=== PATIENT | male | born 1955 | race Caucasian/White ===

== ENCOUNTER 2021-04-16 08:37 | Inpatient (IN) | payer BC ==
[~2021-04-16] VITALS: Ht 180.3 cm; Wt 75.4 kg
[2021-04-16 10:49] LABS: BASOPHILS # (AUTO) 0.1 X10'3 (0-0.2); BASOPHILS % (AUTO) 0.6 % (0-1); EOSINOPHILS % (AUTO) 0.3 % (0-6); HEMATOCRIT 34.5 % (42.0-52.0); HEMOGLOBIN 12.1 g/dl (14.0-17.9); LYMPHOCYTES # (AUTO) 0.9 X10'3 (1.1-4.8); LYMPHOCYTES % (AUTO) 8.6 % (21-51); MEAN CORPUSCULAR HEMOGLOBIN 36.7 PG (27.0-31.0); MEAN CORPUSCULAR HGB CONC 35.1 g/dL (33.0-36.5); MEAN CORPUSCULAR VOLUME 104.5 FL (78-98); MEAN PLATELET VOLUME 6.4 FL (7.4-10.4); MONOCYTES # (AUTO) 1.1 X10'3 (0-0.9); MONOCYTES % (AUTO) 10.4 % (2-12); NEUTROPHILS # (AUTO) 8.3 X10'3 (1.8-7.7); NEUTROPHILS % (AUTO) 80.1 % (42-75); PLATELET COUNT 402 X10'3 (140-440); RED CELL DISTRIBUTION WIDTH 14.5 % (11.5-14.5); WHITE BLOOD COUNT 10.3 X10'3 (4.5-11.0)
[2021-04-16 11:01] LABS: PARTIAL THROMBOPLASTIN TIME 39 SECONDS (22-32)
[2021-04-16 11:02] LABS: ALANINE AMINOTRANSFERASE 13 U/L (12-78); ALKALINE PHOSPHATASE 146 IU/L (46-116); ANION GAP 9 (8-16); ASPARTATE AMINO TRANSFERASE 11 U/L (10-37); BILIRUBIN,TOTAL 0.6 MG/DL (0.1-1.0); BLOOD UREA NITROGEN 31 MG/DL (7-18); BUN/CREATININE RATIO 7.2 (5.4-32.0); CALCIUM 8.7 MG/DL (8.5-10.1); CHLORIDE 91 MMOL/L (99-107); CREATININE 4.31 MG/DL (0.60-1.10); GLUCOSE 105 MG/DL (70-104); POTASSIUM 4.1 MMOL/L (3.5-5.1); SODIUM 124 MMOL/L (135-145); TOTAL CARBON DIOXIDE 24.5 MMOL/L (24-32); TOTAL PROTEIN 7.3 G/DL (6.4-8.2); eGFR 14 ML/MIN
[2021-04-16 11:07] LABS: ETHANOL < 0.010 GM/DL (0.0-0.010); LIPASE < 50 U/L (73-393); MAGNESIUM 2.5 MG/DL (1.5-2.4)
[2021-04-16 11:09] LABS: ALBUMIN/GLOBULIN RATIO 0.4 (1.1-1.5)
[2021-04-16] MEDS ORDERED: morphine 2 MG/ML inj. syringe IM ONE (12:00)
[2021-04-16] MEDS ORDERED: ondansetron 4mg rapidly disintigrating tab PO ONE (12:00)
[2021-04-16 12:40] LABS: OCCULT BLOOD STOOL POSITIVE (Neg)
[2021-04-16 12:50] LABS: CLARITY,URINE CLEAR (Clear); COLOR,URINE YELLOW (Yellow); GLUCOSE, URINE NEGATIVE (Neg); KETONES,URINE NEGATIVE (Neg); LEUKOCYTE ESTERASE ,URINE NEGATIVE (Neg); NITRITES, URINE NEGATIVE (Neg); OCCULT BLOOD,URINE SMALL (Neg); PROTEIN,URINE NEGATIVE (Neg); UROBILINOGEN,URINE 0.2 E.U/dL (0.2-1.0)
[2021-04-16 12:54] LABS: UA COLLECTION TYPE FOLEY CATH
[2021-04-16 12:56] LABS: BACTERIA,URINE NONE SEEN /HPF (Neg); MUCUS STRANDS NONE SEEN /LPF (Neg); SQUAMOUS EPITHELIAL CELL,UR FEW /LPF (FEW); WBC,URINE 0-4 /HPF (0-4)
[2021-04-16] MEDS ORDERED: HYDR-3972 PO (12:56)
[2021-04-16] MEDS ORDERED: LISI30TA4 PO (12:56)
[2021-04-16] MEDS ORDERED: potassium Cl 40MEQ/1/2NS 520ml 520 ML IV PRN ×2 (13:00)
[2021-04-16] MEDS ORDERED: acetaminophen 325mg tablet PO PRN ×2 (13:00)
[2021-04-16] MEDS ORDERED: morphine 2 MG/ML inj. syringe IV PRN ×2 (13:00)
[2021-04-16] MEDS ORDERED: CefTRIAXone 2gm/D5W 50ml BAG 50 ML IV ONE (13:00)
[2021-04-16] MEDS ORDERED: ondansetron/PF 4mg/2ml inj IV PRN (13:00)
[2021-04-16] MEDS ORDERED: potassium Cl 20 mEq SR tablet PO PRN ×2 (13:00)
[2021-04-16] MEDS ORDERED: HYDROcodone/acetaminophen 10/325mg tab PO PRN (13:00)
[2021-04-16] MEDS ORDERED: magnesium Cl slow-release 64mg tablet PO PRN (13:00)
[2021-04-16] MEDS ORDERED: magnesium 4gm in 100ml NS 100 ML IV PRN (13:00)
[2021-04-16] MEDS ORDERED: HYDROcodone/acetaminophen 5mg/325mg tablet PO PRN (13:00)
[2021-04-16] MEDS ORDERED: magnesium 2GM in 50ml NS 50 ML IV PRN (13:00)
[2021-04-16] MEDS ORDERED: HYDROmorphone inj. 0.5 MG/0.5 ML DISP.SYRIN IV PRN (13:00)
[2021-04-16 13:25] LABS: % IRON SATURATION 20 % (11-46); IRON 23 UG/DL (53-167); TOTAL IRON BINDING CAPACITY 114 UG/DL (259-388)
--- NOTE | 2021-04-16 13:26 | NUR ---
ULTRASOUND AT BEDSIDE
[2021-04-16 13:27] LABS: HEMOGLOBIN A1C 5.3 % (4.5-6.2)
[2021-04-16] MEDS: normal saline 1000ml 1,000 ML IV SCH ×2 (13:32→20:33)
--- NOTE | 2021-04-16 14:08 | NUR ---
Patient in room ED 3. I have received report from WIL Singh and had the opportunity to ask questions and assume patient care.
--- NOTE | 2021-04-16 14:20 | NUR ---
Pt arrive to unit stable via wheelchair. Oriented pt to room, provided call light. Completed physical assessment and collected vital signs.
[2021-04-16 15:15] VITALS: BP 147/94
--- NOTE | 2021-04-16 17:03 | NUR ---
Spoke to Aneta regarding diet orders. She spoke to Khadar and placed pt on Renal Diet
--- NOTE | 2021-04-16 18:18 | NUR ---
Patient in room [facility] 349. I have received report from WIL Monreal and had the opportunity to ask questions and assume patient care.
--- NOTE | 2021-04-16 18:38 | NUR ---
Patient in room [facility] 349. I have received report from Amparo DE LA TORRE and had the opportunity to ask questions and assume patient care.
[2021-04-16 18:46] VITALS: BP 114/73
[2021-04-16] MEDS: K and/or MAG REPLACEMENT MC SCH (20:00)
[2021-04-16] MEDS: heparin, porcine 5000 units/ml vial SQ SCH (20:33)
[2021-04-16] MEDS: pantoprazole 40 MG vial IV SCH (20:34)
[2021-04-16] MEDS ORDERED: temazepam 15mg capsule PO PRN (21:00)
[2021-04-17] VITALS: BP 111/80
[2021-04-17] MEDS: normal saline 1000ml 1,000 ML IV SCH ×3 (03:32→15:40)
--- NOTE | 2021-04-17 06:16 | NUR ---
Patient in room [facility] 349. I have received report from Dioni Monreal and had the opportunity to ask questions and assume patient care.
--- NOTE | 2021-04-17 06:24 | NUR ---
Problems reprioritized. Patient report given, questions answered & plan of care reviewed with Amparo DE LA TORRE.
[2021-04-17 06:49] VITALS: BP 115/70
[2021-04-17 06:54] LABS: BASOPHILS % (AUTO) 1.2 % (0-1); EOSINOPHILS # (AUTO) 0.1 X10'3 (0-0.9); EOSINOPHILS % (AUTO) 1.5 % (0-6); HEMATOCRIT 26.9 % (42.0-52.0); HEMOGLOBIN 9.4 g/dl (14.0-17.9); LYMPHOCYTES # (AUTO) 0.8 X10'3 (1.1-4.8); LYMPHOCYTES % (AUTO) 19.2 % (21-51); MEAN CORPUSCULAR HEMOGLOBIN 36.4 PG (27.0-31.0); MEAN CORPUSCULAR VOLUME 103.8 FL (78-98); MEAN PLATELET VOLUME 6.5 FL (7.4-10.4); MONOCYTES # (AUTO) 0.5 X10'3 (0-0.9); MONOCYTES % (AUTO) 12.5 % (2-12); NEUTROPHILS # (AUTO) 2.8 X10'3 (1.8-7.7); NEUTROPHILS % (AUTO) 65.6 % (42-75); PLATELET COUNT 356 X10'3 (140-440); RED BLOOD COUNT 2.59 X10'6 (4.70-6.10); RED CELL DISTRIBUTION WIDTH 14.6 % (11.5-14.5); WHITE BLOOD COUNT 4.3 X10'3 (4.5-11.0)
[2021-04-17 07:12] LABS: ALANINE AMINOTRANSFERASE 10 U/L (12-78); ALBUMIN 1.3 G/DL (3.4-5.0); ALBUMIN/GLOBULIN RATIO 0.3 (1.1-1.5); ALKALINE PHOSPHATASE 108 IU/L (46-116); ANION GAP 8 (8-16); ASPARTATE AMINO TRANSFERASE 16 U/L (10-37); BILIRUBIN,TOTAL 0.3 MG/DL (0.1-1.0); BLOOD UREA NITROGEN 12 MG/DL (7-18); BUN/CREATININE RATIO 10.9 (5.4-32.0); CALCIUM 7.5 MG/DL (8.5-10.1); CHLORIDE 106 MMOL/L (99-107); GLUCOSE 104 MG/DL (70-104); MAGNESIUM 1.9 MG/DL (1.5-2.4); POTASSIUM 3.1 MMOL/L (3.5-5.1); SODIUM 139 MMOL/L (135-145); TOTAL CARBON DIOXIDE 25.4 MMOL/L (24-32); TOTAL PROTEIN 5.2 G/DL (6.4-8.2); eGFR 68 ML/MIN
[2021-04-17] MEDS: pantoprazole 40 MG vial IV SCH (07:59)
[2021-04-17] MEDS: heparin, porcine 5000 units/ml vial SQ SCH (08:00)
[2021-04-17] MEDS: K and/or MAG REPLACEMENT MC SCH (08:00)
[2021-04-17 11:00] VITALS: BP 119/70
[2021-04-17] MEDS ORDERED: potassium Cl 20 mEq SR tablet PO STA (11:41)
--- NOTE | 2021-04-17 11:45 | NUR ---
PAGER ID: [phone] MESSAGE: [id number]: Percy Alvarengay - Currently replacing K+ with 20meq of K. Would you still like to give pt the 40meq STAT dose in addition to the other doses needed to be given? -juliana [phone] Addendum: 04/17/21 at 1146 by Juliana Barton RN niraj Cornell give stat dose
--- NOTE | 2021-04-17 17:29 | NUR ---
PAGER ID: [phone] MESSAGE: 349B: K+ is 3.6. -Amparo [phone]
--- NOTE | 2021-04-17 18:28 | NUR ---
Patient in room [facility] 349B. I have received report from WIL Christensen and had the opportunity to ask questions and assume patient care.
--- NOTE | 2021-04-17 18:29 | NUR ---
Problems reprioritized. Patient report given, questions answered & plan of care reviewed with WLI Curry.
[2021-04-17 18:55] VITALS: BP 143/86
[2021-04-17] MEDS ORDERED: LISI20TA28 PO (18:59)
--- NOTE | 2021-04-17 19:44 | NUR ---
Patient discharged. multimedia services manager wheeled patient out of unit with all belongings. Patient verbalized understanding to all discharge instructions including medications, Rocha catheter care, and follow up with Dr. Rubalcava. IV discontinued. Patient knows to call back or come back to ER if any symptoms worsen.
[2021-04-17] MEDS ORDERED: pantoprazole 40mg Tablet.DR PO SCH (20:00)
== END 2021-04-17 19:50 | disposition home or self-care (01) | DRG 699 ==
LOC: ER 08:39 → ED HOLD 12:56 → EDBEDREQ 13:47 → SUR 3N 14:30
PROVIDERS: ADMIT Internal Medicine; ATTEND Internal Medicine
PROC: 0T9B70Z Drainage of Bladder with Drainage Device, Via Natural or Artificial Opening (ICD-10-PCS; principal; 2021-04-16)
DX: N32.0 Bladder-neck obstruction (principal); N17.9 Acute kidney failure, unspecified; E87.1 Hypo-osmolality and hyponatremia; M48.54XA Collapsed vertebra, not elsewhere classified, thoracic region, initial encounter for fracture; N13.2 Hydronephrosis with renal and ureteral calculous obstruction; F17.210 Nicotine dependence, cigarettes, uncomplicated; R19.5 Other fecal abnormalities; G89.29 Other chronic pain; E87.6 Hypokalemia; I10 Essential (primary) hypertension; K59.00 Constipation, unspecified; N39.44 Nocturnal enuresis; R73.03 Prediabetes; Z71.6 Tobacco abuse counseling
CPT/HCPCS: 36415; 74176; 76770; 80053; 80320; 81001; 82272; 83036; 83540; 83550; 83605; 83690; 83735; 83930; 84132; 84145; 84153; 84484; 85025; 85610; 85730; 87040; 87081; 93005; 96372; 97116; 97161; 97530; 99285; C9113; G0378; J0696; J1644; J2270; J7030

== ENCOUNTER 2023-01-22 14:42 | Emergency (ER) | payer MEDICARE ==
[~2023-01-22] VITALS: Ht 177.8 cm; Wt 72.7 kg
[~2023-01-22 14:42] MED LIST: CYAN-51 PO; ESCI-8 PO; FOLI1TAB27 PO; HYDR50TA65 PO; LISI5TAB22 PO; NALT50TA PO; NICO-687 TD; NO HOME MEDS; TRAZ-251 PO; thiamine tablet PO
[2023-01-22 15:13] VITALS: BP 135/93
[2023-01-22] MEDS ORDERED: HYDROcodone/acetaminophen 10/325mg tab PO ONE (18:30)
[2023-01-22] MEDS ORDERED: HYDR-3972 PO (19:01)
== END 2023-01-22 20:15 | disposition home or self-care (01) ==
LOC: ER 14:43
DX: S82.491A Other fracture of shaft of right fibula, initial encounter for closed fracture (principal); F17.200 Nicotine dependence, unspecified, uncomplicated; Z79.899 Other long term (current) drug therapy; W18.39XA Other fall on same level, initial encounter; Y93.89 Activity, other specified; Y92.89 Other specified places as the place of occurrence of the external cause; Y99.8 Other external cause status
CPT/HCPCS: 29515; 73610; 73630; 99284; A6446; A6449

== ENCOUNTER 2023-01-24 11:37 | Emergency (ER) | payer MEDICARE ==
[~2023-01-24] VITALS: Ht 172.7 cm; Wt 90.0 kg
[~2023-01-24 11:37] MED LIST changes: +HYDR-3972 PO
[2023-01-24 11:48] VITALS: BP 101/59
== END 2023-01-24 17:01 | disposition home or self-care (01) ==
LOC: ER 11:38
DX: S82.831A Other fracture of upper and lower end of right fibula, initial encounter for closed fracture (principal); Z79.899 Other long term (current) drug therapy; X58.XXXA Exposure to other specified factors, initial encounter; Y93.9 Activity, unspecified; Y92.89 Other specified places as the place of occurrence of the external cause; Y99.8 Other external cause status
CPT/HCPCS: 73610; 99283; A6449

== ENCOUNTER → 2023-02-16 | Day surgery (SDC) | payer MEDICARE ==
[2023-02-14 11:35] LABS: EOSINOPHILS # (AUTO) 0.2 X10'3 (0-0.9); PRE OP HEMATOCRIT 37.7 % (42.0-52.0)
[2023-02-14 11:37] LABS: CLARITY,URINE CLEAR (Clear); COLOR,URINE YELLOW (Yellow); GLUCOSE, URINE NEGATIVE (Neg); KETONES,URINE NEGATIVE (Neg); LEUKOCYTE ESTERASE ,URINE NEGATIVE (Neg); NITRITES, URINE NEGATIVE (Neg); OCCULT BLOOD,URINE NEGATIVE (Neg); PROTEIN,URINE NEGATIVE (Neg); UROBILINOGEN,URINE 0.2 E.U/dL (0.2-1.0)
[2023-02-14 11:37] LABS: BASOPHILS # (AUTO) 0.1 X10'3 (0-0.2); EOSINOPHILS % (AUTO) 3.6 % (0-6); LYMPHOCYTES % (AUTO) 33.2 % (21-51); MEAN CORPUSCULAR HGB CONC 34.4 g/dL (33.0-36.5); MEAN CORPUSCULAR VOLUME 104.8 FL (78-98); MEAN PLATELET VOLUME 6.8 FL (7.4-10.4); MONOCYTES # (AUTO) 0.6 X10'3 (0-0.9); MONOCYTES % (AUTO) 9.7 % (2-12); NEUTROPHILS # (AUTO) 3.2 X10'3 (1.8-7.7); NEUTROPHILS % (AUTO) 52.5 % (42-75); PRE OP PLATELET COUNT 285 X10'3 (140-440); RED CELL DISTRIBUTION WIDTH 15.4 % (11.5-14.5)
[2023-02-14 11:45] LABS: UA COLLECTION TYPE CLN CATCH MIDSTREAM
[2023-02-14 12:15] LABS: ALBUMIN 3.6 G/DL (3.4-5.0); ALBUMIN/GLOBULIN RATIO 1.1 (1.1-1.5); ALKALINE PHOSPHATASE 65 IU/L (46-116); BLOOD UREA NITROGEN 11 MG/DL (7-18); BUN/CREATININE RATIO 11.6 (10.0-20.0); CALCIUM 8.9 MG/DL (8.5-10.1); CHLORIDE 103 MMOL/L (99-107); CREATININE 0.95 MG/DL (0.60-1.10); PRE OP ALT 16 U/L (30-65); PRE OP ANION GAP 7 (8-16); PRE OP AST 15 U/L (10-37); PRE OP BILIRUB, TOTAL 0.5 MG/DL (0.0-1.0); PRE OP GLUCOSE 91 MG/DL (70-104); PRE OP SODIUM 136 MMOL/L (135-145); TOTAL CARBON DIOXIDE 26.1 MMOL/L (24-32); TOTAL PROTEIN 6.9 G/DL (6.4-8.2); eGFR 80 ML/MIN
[~2023-02-16] VITALS: Ht 180.3 cm; Wt 76.3 kg
[~2023-02-16] MED LIST changes: +CEPH-585 PO; -CYAN-51 PO; -ESCI-8 PO; -FOLI1TAB27 PO; -HYDR50TA65 PO; +HYDROcodone/acetaminophen 10/325mg tab PO ONE; -LISI5TAB22 PO; -NALT50TA PO; -NICO-687 TD; -NO HOME MEDS; +ROPIVAcaine 0.5% (5mg/ml) 30ml vial ONE; -TRAZ-251 PO; +albuterol 2.5 MG/3 ML nebule NEB ONE; +bacitracin 15gm ointment TP ONE; +cefazolin 2gm/D5W 100mL 100 ML IV ONE; +dexamethasone sod phosphate 4mg/ml inj. ONE; +famotidine 20mg tablet PO ONE; +fentaNYL/PF 50MCG/1 ML 2ML syringe ONE; +meperidine/PF 25mg/ml syringe IV PRN; +midazolam 1 mg/ML 2ml injection ONE; +morphine 2 MG/ML inj. syringe IV PRN; +morphine 4 MG/ML inj SYRINge IV PRN; +ondansetron/PF 4mg/2ml inj IV PRN; +ondansetron/PF 4mg/2ml inj ONE; +proCHLORperazine 10 MG/2 ml inj IV PRN; +propofol inj 20 ML IV ONE; +ringers solution, lacted 1,000 ML IV SCH; -thiamine tablet PO
[2023-02-16 11:45] VITALS: BP 130/84
[2023-02-16 22:13] VITALS: BP 136/85
--- NOTE | 2023-02-16 22:13 | NUR ---
Received from OR via , accompanied by Anesthesiologist ANGELIA AND OR NURSE and report given by Anesthesiolgist. PT IS DROWSY YET ABLE TO FOLLOW COMMANDS. DENIES PAIN OR DISCOMFORT. RT LOWER LEG IS IN CAST/SPLINT WITH GAUZE AND RUSS WRAP; CDI. VSS Addendum: 02/16/23 at 2224 by Melissa De La Torre RN Amended: Links added.
[2023-02-16 22:20] VITALS: BP 127/74
[2023-02-16 22:30] VITALS: BP 123/78
[2023-02-16 22:40] VITALS: BP 121/85
[2023-02-16 22:50] VITALS: BP 146/88
--- NOTE | 2023-02-16 23:03 | NUR ---
I HAVE REVIEWED D/C INSTRUCTIONS WITH PATIENT AND THEY HAVE VERBALIZED UNDERSTANDING OF INSTRUCTIONS. PATIENT D/C HOME WITH ALL BELONGINGS AND FAMILY GAVE TRANSPORT Addendum: 02/16/23 at [id number] by Melissa De La Torre RN Amended: Links added.
== END | disposition home or self-care (01) ==
LOC: PAS 11:24
PROVIDERS: ATTEND Podiatrist Foot & Ankle Surgery
DX: S82.61XA Displaced fracture of lateral malleolus of right fibula, initial encounter for closed fracture (principal); G89.18 Other acute postprocedural pain; F17.210 Nicotine dependence, cigarettes, uncomplicated; F10.91 Alcohol use, unspecified, in remission; Z98.890 Other specified postprocedural states; Z79.899 Other long term (current) drug therapy; Z79.82 Long term (current) use of aspirin; Z88.8 Allergy status to other drugs, medicaments and biological substances; X50.1XXA Overexertion from prolonged static or awkward postures, initial encounter; Y93.89 Activity, other specified; Y92.89 Other specified places as the place of occurrence of the external cause; Y99.8 Other external cause status
CPT/HCPCS: 27792; 36415; 64445; 71046; 73600; 80053; 81003; 82948; 85025; 93005; A6223; C1713; J0690; J1100; J2250; J2405; J2704; J2795; J3010; J7030; J7120; Z7506; Z7508; Z7512; 76000; A4618; A6253; A6449; A7000

== ENCOUNTER 2025-09-03 15:01 | Emergency (ER) | payer MEDICARE ==
[~2025-09-03] VITALS: Ht 170.2 cm; Wt 92.0 kg
[~2025-09-03 15:01] MED LIST changes: -CEPH-585 PO; -HYDR-3972 PO; -HYDROcodone/acetaminophen 10/325mg tab PO ONE; +NO HOME MEDS; -ROPIVAcaine 0.5% (5mg/ml) 30ml vial ONE; -albuterol 2.5 MG/3 ML nebule NEB ONE; -bacitracin 15gm ointment TP ONE; -cefazolin 2gm/D5W 100mL 100 ML IV ONE; -dexamethasone sod phosphate 4mg/ml inj. ONE; -famotidine 20mg tablet PO ONE; -fentaNYL/PF 50MCG/1 ML 2ML syringe ONE; -meperidine/PF 25mg/ml syringe IV PRN; -midazolam 1 mg/ML 2ml injection ONE; -morphine 2 MG/ML inj. syringe IV PRN; -morphine 4 MG/ML inj SYRINge IV PRN; -ondansetron/PF 4mg/2ml inj IV PRN; -ondansetron/PF 4mg/2ml inj ONE; -proCHLORperazine 10 MG/2 ml inj IV PRN; -propofol inj 20 ML IV ONE; -ringers solution, lacted 1,000 ML IV SCH; +tamsulosin capsule PO
[2025-09-03 15:03] VITALS: TEMP 96.3
--- NOTE | 2025-09-03 15:11 | Physician Documentation ---
History of Present Illness ~ Chief Complaint: Urinary Retention Stated Complaint: URINARY RETENTION Time Seen by MD: 15:10 Primary Medical Doctor: DR GONZALEZ HPI 70 year old male who presents to the emergency department today per ambulance reporting inability to void more than a very small amount since this morning. Of note, the patient was admitted to the hospital from 07/04/2025 to 07/09/2025 for acute urinary retention with SHANNAN. He just had a follow up appointment with urologist Dr. Rubalcava this past Sunday, at which point his Mendez catheter was removed. He does note that he also voided successfully post catheter removal. He is currently on Cipro per the order of Dr. Rubalcava as well as Flomax. He denies chills or fever, chest pain or shortness of breath, nausea or vomiting, reports he feels overall well. Medication Reconciliation Allergies: Coded Allergies: No Known Allergies (Unverified , 09/03/25) Scheduled [tamsulosin capsule], 0.4 MG PO HS Miscellaneous Medications Home Med List (No Home Medications), (Reported) Past Medical History Past Medical History: No Pertinent History Past Surgical History: no surgical history Alcohol Use: Heavy Drug Use: other Lives with: Spouse Lives In: Home Review of Systems ROS As stated above in the HPI, otherwise all systems are reviewed and negative. Physical Exam Vital Signs: Temperature: 96.3, Source: Temporal, Heart Rate: 89, Respiratory Rate: 15, BP: 162/105, Pulse Oximetry: 98, Weight: 92.000 Physical Exam General: Alert, no apparent distress. HEENT: PERRL, EOMI, no injection, moist mucous membranes. Neck: Full range of motion. Respiratory: Lungs clear, no respiratory distress. Chest: No accessory muscle use. Cardiovascular: Regular rate and rhythm, no murmurs. Gastrointestinal: Soft, nontender, nondistended. Bowels sounds present. : Mendez catheter intact draining dark yellow urine. Extremities: Normal range of motion, no deformity. Neurologic: Oriented x4. Psychiatric: Normal mood and affect. Skin: Normal color, warm and dry. No edema, no ecchymosis. Progress Results/Orders Results/Orders Orders - THERESA VERGARA NP Bladder Scan (09/03/25 ) * (A) Mendez- Protocol * Q12H@07,19 (09/03/25 15:18) Completed Orders - THERESA VERGARA BISTRO SERVER Lidocaine 2% Jelly 11ml Syr (Glydo-Lidoc (09/03/25 15:20) BMP (09/03/25 16:26) Cbc/Diff (09/03/25 16:26) Medications Received in ER Medications (Trade) Dose Ordered Sig/Chavo Route PRN Reason Start Time Stop Time Status Last Admin Dose Admin (GLYDO-Lidocaine 2% Topical Jelly 11mL syringe) 1 applic ONCE ONCE TOP 09/03/25 15:20 09/03/25 15:21 DC 09/03/25 15:46 1 APPLIC Vital Signs 09/03/25 09/03/25 15:03 17:02 Temp 96.3 Pulse 89 85 Resp 15 16 B/P (MAP) 162/105 132/91 (105) Pulse Ox 98 95 O2 Flow Rate 0 Laboratory Tests Test 09/03/25 16:39 White Blood Count 7.9 Red Blood Count 4.18 L Hemoglobin 13.0 L Hematocrit 37.8 L Mean Corpuscular Volume 90.3 Mean Corpuscular Hemoglobin 31.0 Mean Corpuscular Hemoglobin Concent 34.3 Red Cell Distribution Width 15.9 H Platelet Count 282 Mean Platelet Volume 6.4 L Neutrophils (%) (Auto) 69.3 Lymphocytes (%) (Auto) 19.5 L Monocytes (%) (Auto) 8.8 Eosinophils (%) (Auto) 1.1 Basophils (%) (Auto) 1.3 H Neutrophils # (Auto) 5.5 Lymphocytes # (Auto) 1.5 Monocytes # (Auto) 0.7 Eosinophils # (Auto) 0.1 Basophils # (Auto) 0.1 CBC Comment Sodium Level 139 Potassium Level 3.8 Chloride Level 108 H Carbon Dioxide Level 22.8 L Anion Gap 8 Blood Urea Nitrogen 11 Creatinine 0.95 Estimated GFR/1.73 m2 79 BUN/Creatinine Ratio 11.6 Glucose Level 110 H Calcium Level 8.3 L Albumin 3.5 Chemistry Comments Medical Decision Making Additional information obtaine: old records Findings Reviewed records from previous hospital stay. Urinary Diff Dx:Considerations: Include: Other Genital Diff Dx:Considerations: Include: Other Additional Comment Most Likely Diagnoses: Recurrent bladder outlet obstruction from benign prostatic hyperplasia (BPH): The 1,200 mL post-catheterization urine output indicates significant urinary retention, which in a 70-year-old male is most commonly due to BPH with bladder outlet obstruction. Despite tamsulosin therapy (an alpha-lainey that relaxes prostatic smooth muscle), this patient has experienced recurrent retention requiring catheterization just four days prior. The large residual volume suggests either inadequate medical management, progressive obstruction, or [id number] retention precipitated by the recent UTI. Men with BPH commonly present with obstructive symptoms including urinary hesitancy, weak stream, straining to void, and incomplete emptying. 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 Chronic urinary retention can cause detrusor muscle damage through prolonged over-distension, leading to axonal degeneration, muscle loss, and fibrosis. This creates a cycle where retention begets further detrusor dysfunction. The recent catheter removal may have temporarily decompressed the bladder, but the underlying detrusor weakness persists. Urodynamically, detrusor underactivity is defined as a contraction of reduced strength and/or duration resulting in prolonged or incomplete bladder emptying. [2] Acute bacterial prostatitis causing inflammatory bladder outlet obstruction: The patient is currently on ciprofloxacin for a recent UTI, which raises the possibility of acute bacterial prostatitis as the precipitant of retention. Acute prostatitis causes prostatic edema and inflammation that can acutely worsen bladder outlet obstruction. Signs and symptoms of urinary retention such as urinary urgency, small-volume voiding, palpable bladder, or urinary incontinence should prompt evaluation with post-void residual measurement. The combination of UTI treatment and recent retention history suggests ongoing prostatic inflammation may be contributing. [3] Medication-induced urinary retention: While the patient is appropriately on tamsulosin (which should improve voiding), ciprofloxacin and other medications may contribute to retention. Drugs with anticholinergic activity, opioids, alpha-adrenoceptor agonists, benzodiazepines, NSAIDs, and calcium channel antagonists can all impair micturition. Elderly patients are at higher risk for drug-induced retention due to existing comorbidities like BPH and polypharmacy effects. A careful medication review is essential to identify potential culprits. [4] Urethral stricture disease: Urethral stricture should be included in the differential diagnosis of patients presenting with decreased urinary stream, incomplete emptying, dysuria, UTI, and rising post-void residual. The recent catheterization four days ago could have caused urethral trauma leading to stricture formation, or a pre-existing stricture may have been the underlying cause of the initial retention. Men with urethral stricture commonly report weak stream, incomplete emptying, and dysuriasymptoms that overlap significantly with BPH. [5] Most Important Not to Miss Diagnoses: Cauda equina syndrome or spinal cord compression: Rule out with urgent neurological examination assessing for saddle anesthesia, bilateral leg weakness or numbness, and bowel dysfunction, followed by urgent MRI of the lumbar spine if red flags are present. All current guidelines recommend urgent MRI with the presence of red flag findings including perianal/perineal/saddle sensory disturbance and bladder or bowel dysfunction. Digital rectal examination to assess sphincter tone and assessment of lower extremity strength, sensation, and reflexes are essential. While urinary retention alone can occur with cauda equina, the combination with other neurologic deficits constitutes a surgical emergency requiring decompression within 48 hours. [6] Obstructing prostate or bladder malignancy: Rule out with digital rectal examination to assess for prostatic nodules or asymmetry, serum prostate- specific antigen (PSA) level, and cystoscopy if hematuria is present or symptoms are atypical. Prostate cancer can present with lower urinary tract symptoms indistinguishable from BPH, and bladder cancer may cause obstruction at the bladder neck. The recent UTI and retention could mask underlying malignancy. If PSA is elevated (particularly >10 ng/mL) or if there are concerning findings on examination, referral to urology for consideration of prostate biopsy is warranted. Patients with irritative symptoms and microscopic hematuria on urinalysis should be referred to a urologist for further evaluation and possible cystoscopy. [1][7] Neurogenic bladder from diabetic autonomic neuropathy or other neurologic disease: Rule out with comprehensive neurological examination, assessment for diabetes and glycemic control, and consideration of urodynamic studies. Neurologic diseases including multiple sclerosis, Parkinson disease, stroke, and spinal cord injuries may lead to overactive or underactive bladder. Poorly controlled diabetes may cause diabetic neurogenic bladder with impaired detrusor contractility presenting with obstructive-like symptoms. Lesions of the sacral cord and infrasacral region can result in detrusor underactivity with impaired contractility and urinary retention. If neurologic disease is suspected, urodynamic testing can differentiate between bladder outlet obstruction and detrusor underactivity. [1][8] Departure Time of Disposition: 17:02 Impression: Primary Impression: Urinary retention Discharge Instructions: Acute Urinary Retention, Male, Indwelling Urinary Catheter Care, Adult Additional Instructions: Labs looked good today. Remain on your current medications. Leave mendez catheter in place until your followup with Dr. Rubalcava in three weeks. Return to ER if worse. Referrals: NO PRIMARY CARE PROVIDER (PCP) Education Educated: Patient Educated regarding: diagnosis, treatment, prognosis, need for follow up Signature Scribe Signature: x Attestation: The note accurately reflects work and decisions made by me.Theresa Andres NP 09/03/25 16:39 THERESA VERGARA NP Sep 03, 2025 15:11
[2025-09-03] MEDS: LidoCAINE 2% Topical Jelly 11mL syringe (UROJET) TOP ONE (15:46)
[2025-09-03 16:51] LABS: MEAN PLATELET VOLUME 6.4 FL (7.4-10.4); RED CELL DISTRIBUTION WIDTH 15.9 % (11.5-14.5)
[2025-09-03 16:55] LABS: CREATININE 0.95 MG/DL (0.60-1.10); TOTAL CARBON DIOXIDE 22.8 MMOL/L (24-32); eCRCL 70 ML/MIN; eGFR 79 ML/MIN
[2025-09-03 17:16] VITALS: BP 132/47; PULSE 82; RESP 16; O2SAT 95
== END 2025-09-03 17:18 | disposition home or self-care (01) ==
LOC: ER 15:02
DX: R33.9 Retention of urine, unspecified (principal); F10.90 Alcohol use, unspecified, uncomplicated; Z79.899 Other long term (current) drug therapy; Y90.9 Presence of alcohol in blood, level not specified
CPT/HCPCS: 36415; 51702; 80048; 85025; 99284; A4314; A4358